=== PATIENT | male | born 1955 | race Caucasian/White ===

== ENCOUNTER 2018-02-14 12:57 | Emergency (ER) | payer MEDICAID, OTHER ==
[~2018-02-14] VITALS: Ht 177.8 cm; Wt 87.7 kg
[2018-02-14 12:59] VITALS: BP 127/76
== END 2018-02-14 14:16 | disposition home or self-care (01) ==
LOC: ED 13:54
DX: S61.210D Laceration without foreign body of right index finger without damage to nail, subsequent encounter (principal); F17.200 Nicotine dependence, unspecified, uncomplicated; X58.XXXD Exposure to other specified factors, subsequent encounter
CPT/HCPCS: 99281

== ENCOUNTER 2018-02-17 09:04 | Emergency (ER) | payer OTHER ==
[~2018-02-17] VITALS: Ht 177.8 cm; Wt 86.5 kg
[2018-02-17 09:11] VITALS: BP 170/97
== END 2018-02-17 10:06 | disposition home or self-care (01) ==
LOC: ED 10:00
DX: L02.511 Cutaneous abscess of right hand (principal); F17.200 Nicotine dependence, unspecified, uncomplicated
CPT/HCPCS: 99281

== ENCOUNTER 2019-02-26 20:43 | Emergency (ER) | payer MEDICAID, OTHER ==
[~2019-02-26] VITALS: Ht 177.8 cm; Wt 87.0 kg
[2019-02-26 20:47] VITALS: BP 122/78
[2019-02-26] MEDS ORDERED: DIPH,PERTUSS(ACELL),TET VAC/PF 0.5 ML IM-VACC ONE (21:00)
[2019-02-26] MEDS ORDERED: ACETAMINOPHEN 500 MG TABLET PO ONE (21:00)
[2019-02-26] MEDS ORDERED: PLEASE ENTER HEIGHT AND WEIGHT MC SCH (21:00)
[2019-02-26] MEDS ORDERED: ACETAMINOPHEN 500 MG TABLET ONE (21:51)
== END 2019-02-26 22:41 | disposition home or self-care (01) ==
LOC: ED 22:30
DX: S01.01XA Laceration without foreign body of scalp, initial encounter (principal); S09.90XA Unspecified injury of head, initial encounter; F17.200 Nicotine dependence, unspecified, uncomplicated; Y08.89XA Assault by other specified means, initial encounter; Y93.89 Activity, other specified; Y92.89 Other specified places as the place of occurrence of the external cause; Y99.8 Other external cause status
CPT/HCPCS: 12001; 70450; 99284

== ENCOUNTER 2019-03-07 03:40 | Emergency (ER) | payer MEDICAID ==
[~2019-03-07] VITALS: Ht 175.3 cm; Wt 86.6 kg
[2019-03-07 03:42] VITALS: BP 162/82
== END 2019-03-07 04:11 | disposition home or self-care (01) ==
LOC: ED 04:09
DX: S01.01XD Laceration without foreign body of scalp, subsequent encounter (principal); F17.200 Nicotine dependence, unspecified, uncomplicated; X58.XXXD Exposure to other specified factors, subsequent encounter
CPT/HCPCS: 99281